=== PATIENT | male | born 1985 | race Caucasian/White ===

== ENCOUNTER → 2016-12-05 | Outpatient (CLI) | payer OTHER | END | disposition home or self-care (01) | LOC: CFH 08:11 | PROVIDERS: ATTEND Internal Medicine Cardiovascular Disease | DX: R94.31 Abnormal electrocardiogram [ECG] [EKG] (principal); I10 Essential (primary) hypertension; R01.1 Cardiac murmur, unspecified | CPT/HCPCS: 78452; 93017; A9502 ==

== ENCOUNTER → 2017-01-04 | Outpatient (CLI) | payer OTHER ==
[~2017-01-04] MED LIST: OMNIPAQUE 350 MG/ML, 100ML BOTTLE ONE
== END | disposition home or self-care (01) ==
LOC: CFH 13:53
PROVIDERS: ATTEND Internal Medicine Cardiovascular Disease
DX: Q23.1 Congenital insufficiency of aortic valve (principal)
CPT/HCPCS: 71275; 82565; Q9967

== ENCOUNTER 2017-02-23 09:56 | Day surgery (SDC) | payer OTHER ==
[~2017-02-23] VITALS: Ht 175.3 cm; Wt 115.9 kg
[2017-02-23 10:10] VITALS: BP 141/93
[2017-02-23] MEDS ORDERED: AMLO10TA4 PO (10:26)
[2017-02-23] MEDS ORDERED: HYDR25TA6 PO (10:26)
[2017-02-23] MEDS ORDERED: LISI40TA PO (10:26)
[2017-02-23] MEDS ORDERED: METO50TA82 PO (10:26)
[2017-02-23] MEDS ORDERED: SODIUM CHLORIDE 0.9% 1,000 ML IV SCH (11:30)
[2017-02-23] MEDS ORDERED: PROPOFOL 10 MG/ML, 20ML ONE (12:15)
== END 2017-02-23 13:00 | disposition home or self-care (01) ==
LOC: CACL 09:56
PROVIDERS: ATTEND Internal Medicine Cardiovascular Disease
DX: Q23.1 Congenital insufficiency of aortic valve (principal); I35.1 Nonrheumatic aortic (valve) insufficiency; I10 Essential (primary) hypertension; R01.1 Cardiac murmur, unspecified; E78.2 Mixed hyperlipidemia
CPT/HCPCS: 93312; 93321; 93325; J2704

== ENCOUNTER → 2017-03-09 | Outpatient (CLI) | payer OTHER ==
[~2017-03-09] MED LIST changes: +AMLO10TA4 PO; +HYDR25TA6 PO; +LISI40TA PO; +METO50TA82 PO; -OMNIPAQUE 350 MG/ML, 100ML BOTTLE ONE
== END | disposition home or self-care (01) ==
LOC: CVU 08:50
PROVIDERS: ATTEND Internal Medicine Cardiovascular Disease
DX: I87.2 Venous insufficiency (chronic) (peripheral) (principal); I25.10 Atherosclerotic heart disease of native coronary artery without angina pectoris; Q23.1 Congenital insufficiency of aortic valve
CPT/HCPCS: 93922; 93970

== ENCOUNTER 2017-04-10 10:05 | Day surgery (SDC) | payer OTHER ==
[2017-04-07 08:47] VITALS: BP 148/93
[2017-04-07 09:09] LABS: BLOOD UREA NITROGEN 21 mg/dL (7-18)
[2017-04-07 09:13] LABS: HEMATOCRIT 46.3 % (39.2-51.8); HEMOGLOBIN 16.3 g/dL (13.7-18.0); WHITE BLOOD COUNT 5.7 x10^3/uL (3.4-10)
[~2017-04-10] VITALS: Ht 188 cm; Wt 113.6 kg
[2017-04-10] MEDS ORDERED: SODIUM CHLORIDE 0.9% 1,000 ML IV ONE (10:17)
[2017-04-10] MEDS ORDERED: MIDAZOLAM 1 MG/ML, 5ML ONE (10:52)
[2017-04-10] MEDS ORDERED: FENTANYL PF 100 MCG/2ML ONE (10:53)
[2017-04-10] MEDS ORDERED: LIDOCAINE 2%, 20ML ONE (10:53)
[2017-04-10] MEDS ORDERED: ACETAMINOPHEN 325 MG TABLET ONE (16:55)
[2017-04-10] MEDS ORDERED: SODIUM CHLORIDE 0.9% 500 ML IV ONE ×2 (17:00→17:30)
[2017-04-10] MEDS ORDERED: ACETAMINOPHEN 325 MG TABLET PO PRN (17:00)
== END 2017-04-10 21:55 | disposition home or self-care (01) ==
LOC: CACL 10:05 → 5SO 17:25 → CACL 21:55
PROVIDERS: ATTEND Internal Medicine Cardiovascular Disease
DX: I35.1 Nonrheumatic aortic (valve) insufficiency (principal)
CPT/HCPCS: 36415; 80048; 85025; 93458; 99156; C1760; C1769; C1894; J2250; J3010; J3490; J7030; J7040; Q9967

== ENCOUNTER 2017-05-03 04:39 | Inpatient (IN) | payer OTHER ==
[2017-05-02 14:13] LABS: MICROSCOPIC NOT IND
[2017-05-02 14:16] LABS: BASOPHILS # (AUTO) 0.03 x10^3/uL (0-0.1); BASOPHILS % (AUTO) 1 % (0-1); EOSINOPHILS # (AUTO) 0.03 x10^3/uL (0-0.4); EOSINOPHILS % (AUTO) 1 % (1-7); LYMPHOCYTES # (AUTO) 1.98 x10^3/uL (1-3.4); LYMPHOCYTES % (AUTO) 34 % (22-44); MD NO; MEAN CORPUSCULAR HEMOGLOBIN 30.8 pg (27.5-34.5); MEAN CORPUSCULAR HGB CONC 35.2 g/dL (33.2-36.2); MEAN CORPUSCULAR VOLUME 87.5 fL (81-97); MEAN PLATELET VOLUME 7.6 fL (7.4-10.4); MONOCYTES # (AUTO) 0.54 x10^3/uL (0.2-0.8); MONOCYTES % (AUTO) 9 % (2-9); NEUTROPHILS # (AUTO) 3.32 x10^3/uL (1.8-6.8); NEUTROPHILS % (AUTO) 56 % (42-75); PLATELET COUNT 169 x10^3/uL (130-400); RED BLOOD COUNT 5.06 x10^6/uL (4.38-5.82)
[2017-05-02 14:24] LABS: INTERNATIONAL NORMALIZED RATIO 1.11 (0.93-1.1); PROTHROMBIN TIME 11.4 Seconds (9.6-11.5)
[2017-05-02 14:27] LABS: ALANINE AMINOTRANSFERASE 63 U/L (12-78); ALBUMIN 3.9 g/dL (3.4-5.0); ANION GAP 5 mmol/L (5-15); CALCIUM 8.8 mg/dL (8.5-10.1); CHLORIDE 108 mmol/L (98-107); CREATININE 1.18 mg/dL (0.7-1.3)
[2017-05-02 14:29] LABS: ALKALINE PHOSPHATASE 75 U/L (45-117); BILIRUBIN,TOTAL 0.3 mg/dL (0.2-1.0)
[2017-05-02 14:39] LABS: HEMOGLOBIN A1C 5.2 % (4.2-6.3)
[~2017-05-03] VITALS: Ht 188 cm; Wt 117.2 kg
[2017-05-03] MEDS ORDERED: ALBUMIN HUMAN 5% 500 ML IV PRN (05:00)
[2017-05-03 05:10] VITALS: BP_SYST 155; BP_SYST 161; BP_DIAS 85; BP_DIAS 95
[2017-05-03] MEDS ORDERED: INSULIN ASPART 100 UNITS/ML, PEN SQ-INSULIN SCH (06:00)
[2017-05-03] MEDS ORDERED: CHLORHEXIDINE MOUTHWASH 15 ML UDC MM SCH (06:00)
[2017-05-03] MEDS ORDERED: PHENYLEPHRINE 10 MG in SODIUM CHLORIDE 0.9% 249 ML IV PRN (07:30)
[2017-05-03] MEDS ORDERED: REGULAR INSULIN 62.5 UNITS in SODIUM CHLORIDE 0.9% 249.375 ML IV PRN ×2 (07:30→13:09)
[2017-05-03] MEDS ORDERED: VANCOMYCIN 1,700 MG in SODIUM CHLORIDE 0.9% 250 ML IV PRN (07:30)
[2017-05-03] MEDS ORDERED: DEXMEDETOMIDINE 200 MCG in SODIUM CHLORIDE 0.9% 48 ML IV SCH (07:30)
[2017-05-03] MEDS ORDERED: EPINEPHRINE 2 MG in SODIUM CHLORIDE 0.9% 248 ML IV SCH (07:30)
[2017-05-03] MEDS ORDERED: POTASSIUM CHLORIDE 80 MEQ, SODIUM BICARBONATE 8.4% 10 MEQ, MAGNESIUM SULFATE 0.5 GM, LI... IV PRN (07:30)
[2017-05-03] MEDS ORDERED: CEFUROXIME 1.5 GM in SODIUM CHLORIDE 0.9% 50 ML IVPB PRN (07:30)
[2017-05-03] MEDS ORDERED: MANNITOL PMX 20% 500 ML IVPB PRN (07:30)
[2017-05-03] MEDS ORDERED: FENTANYL PF 1000 MCG/20ML ONE (07:34)
[2017-05-03] MEDS ORDERED: KETAMINE 10 MG/ML, 20ML ONE (07:34)
[2017-05-03] MEDS ORDERED: PROPOFOL 10 MG/ML, 20ML ONE (07:34)
[2017-05-03] MEDS ORDERED: MIDAZOLAM 10MG/2 ML ONE (07:34)
[2017-05-03] MEDS ORDERED: ROCURONIUM 10 MG/ML,10ML ONE ×2 (07:34→10:35)
[2017-05-03] MEDS ORDERED: EPINEPHRINE 1 MG/ML, 1ML ONE (07:35)
[2017-05-03] MEDS ORDERED: ONDANSETRON 2MG/ML, 2ML ONE (07:58)
[2017-05-03] MEDS ORDERED: MUPIROCIN OINT 2%, 22GM TP SCH (09:00)
[2017-05-03] MEDS: DOCUSATE 100 MG CAPSULE PO SCH ×2 (09:00→19:54)
[2017-05-03] MEDS ORDERED: SODIUM CHLORIDE FLUSH 10ML SYR IVF SCH (09:00)
[2017-05-03] MEDS ORDERED: PROTAMINE SULFATE 10 MG/ML, 25ML ONE ×3 (10:59)
[2017-05-03] MEDS ORDERED: FENTANYL PF 250 MCG/5ML ONE (11:59)
[2017-05-03] MEDS ORDERED: methylPREDNISolone SOD SUCC 125 MG/2 ML ONE (12:56)
[2017-05-03] MEDS ORDERED: HEPARIN 1,000 UNITS/ML, 30ML ONE (12:56)
[2017-05-03] MEDS ORDERED: ALBUMIN HUMAN 25% 50 ML ONE (12:56)
[2017-05-03] MEDS ORDERED: SODIUM BICARB 8.4%, 50ML SYRINGE ONE (12:56)
[2017-05-03] MEDS ORDERED: LIDOCAINE 2% 100MG/5ML SYRINGE ONE (12:56)
[2017-05-03] MEDS ORDERED: FUROSEMIDE 20 MG/2 ML ONE (12:56)
[2017-05-03] MEDS ORDERED: NITROGLYCERIN/D5W PMX 240 ML IV PRN (13:09)
[2017-05-03] MEDS ORDERED: VASOPRESSIN 50 UNIT in SODIUM CHLORIDE 0.9% 250 ML IV PRN (13:09)
[2017-05-03] MEDS ORDERED: SODIUM CHLORIDE 0.9% 1,000 ML IV PRN (13:09)
[2017-05-03] MEDS ORDERED: DOBUTAMINE 250 MG in SODIUM CHLORIDE 0.9% 230 ML IV PRN (13:09)
[2017-05-03] MEDS ORDERED: DEXMEDETOMIDINE 200 MCG in SODIUM CHLORIDE 0.9% 48 ML IV PRN (13:09)
[2017-05-03] MEDS ORDERED: INSULIN REGULAR 100 UNITS/ML, 3ML VIAL IVPush PRN (13:30)
[2017-05-03] MEDS ORDERED: PROCHLORPERAZINE 5 MG/ML, 2ML IVPush PRN (13:30)
[2017-05-03] MEDS ORDERED: ONDANSETRON 2MG/ML, 2ML IVPush PRN (13:30)
[2017-05-03] MEDS ORDERED: BISACODYL 10 MG SUPP PR PRN (13:30)
[2017-05-03] MEDS ORDERED: GLUCAGON 1 MG IM PRN (13:30)
[2017-05-03] MEDS ORDERED: ACETAMINOPHEN 325 MG TABLET PO PRN (13:30)
[2017-05-03] MEDS ORDERED: KETOROLAC 30 MG/1 ML IVPush PRN (13:30)
[2017-05-03] MEDS ORDERED: DEXTROSE 4 GM TAB.CHEW PO PRN (13:30)
[2017-05-03] MEDS ORDERED: MIDAZOLAM 1 MG/ML, 5ML IVPush PRN (13:30)
[2017-05-03] MEDS ORDERED: EPINEPHRINE 2 MG in SODIUM CHLORIDE 0.9% 248 ML IV PRN (13:30)
[2017-05-03] MEDS: KSCALE TO 4.5 IV SCH ×2 (13:30→19:30)
[2017-05-03] MEDS ORDERED: DEXTROSE 50%, 50ML SYRINGE IVPush PRN (13:30)
[2017-05-03] MEDS ORDERED: ACETAMINOPHEN 650 MG SUPP PR PRN (13:30)
[2017-05-03] MEDS ORDERED: BISACODYL 5 MG EC TABLET PO PRN (13:30)
[2017-05-03] MEDS ORDERED: SODIUM BICARB 8.4%, 50ML SYRINGE IV PRN (13:30)
[2017-05-03] MEDS ORDERED: LACTATED RINGERS 1,000 ML IV PRN (13:30)
[2017-05-03 13:40] LABS: FIO2 61.8 %; GLUCOSE BY BLOOD GAS ANALYZER 150 mg/dL (70-110); HEMOGLOBIN BY BLOOD GAS ANALYZ 13.7 g/dL (14.0-18.0); POTASSIUM BY BLOOD GAS ANALYZR 4.1 mmol/L (3.6-5.5)
[2017-05-03] MEDS: MAGNESIUM SULFATE 1 GM in SODIUM CHLORIDE 0.9% 50 ML IVPB SCH (14:09)
[2017-05-03] MEDS: morphine SULFATE 10 MG/ML, 1ML IVPush PRN ×2 (14:28→20:32)
[2017-05-03] MEDS: INSULIN ASPART 100 UNITS/ML, PEN SQ-INSULIN SCH ×2 (16:00→21:00)
[2017-05-03] MEDS: CEFUROXIME 1.5 GM in SODIUM CHLORIDE 0.9% 50 ML IVPB SCH (17:40)
[2017-05-03] MEDS: VANCOMYCIN 1,600 MG in SODIUM CHLORIDE 0.9% 250 ML IVPB SCH (18:32)
[2017-05-03] MEDS: OXYcodone IR 5MG TABLET PO PRN ×2 (18:35→19:25)
[2017-05-03] MEDS: SODIUM CHLORIDE FLUSH 10ML SYR IVF SCH (19:54)
[2017-05-03] MEDS: MUPIROCIN OINT 2%, 22GM NAS SCH (19:54)
[2017-05-03] MEDS ORDERED: POTASSIUM CHLORIDE PMX 100 ML IV ONE (20:30)
[2017-05-04] MEDS: OXYcodone IR 5MG TABLET PO PRN ×5 (00:32→15:24)
[2017-05-04] MEDS: KSCALE TO 4.5 IV SCH ×2 (01:30→07:30)
[2017-05-04 04:42] LABS: BASOPHILS % (AUTO) 0 % (0-1); EOSINOPHILS % (AUTO) 0 % (1-7); LYMPHOCYTES % (AUTO) 6 % (22-44); MD NO; MEAN CORPUSCULAR HGB CONC 33.7 g/dL (33.2-36.2); MEAN CORPUSCULAR VOLUME 89.3 fL (81-97); MEAN PLATELET VOLUME 7.9 fL (7.4-10.4); MONOCYTES # (AUTO) 1.42 x10^3/uL (0.2-0.8); MONOCYTES % (AUTO) 9 % (2-9); NEUTROPHILS % (AUTO) 85 % (42-75); PLATELET COUNT 135 x10^3/uL (130-400); RED BLOOD COUNT 4.52 x10^6/uL (4.38-5.82); RED CELL DISTRIBUTION WIDTH 13.6 % (9.4-14.8)
[2017-05-04 04:45] LABS: INTERNATIONAL NORMALIZED RATIO 1.1 (0.93-1.1); PROTHROMBIN TIME 11.3 Seconds (9.6-11.5)
[2017-05-04 04:47] LABS: ALBUMIN 2.8 g/dL (3.4-5.0); ANION GAP 7 mmol/L (5-15); CALCIUM 7.5 mg/dL (8.5-10.1); CHLORIDE 114 mmol/L (98-107); CREATININE 1.24 mg/dL (0.7-1.3)
[2017-05-04] MEDS: VANCOMYCIN 1,600 MG in SODIUM CHLORIDE 0.9% 250 ML IVPB SCH (06:12)
[2017-05-04] MEDS: CEFUROXIME 1.5 GM in SODIUM CHLORIDE 0.9% 50 ML IVPB SCH (06:12)
[2017-05-04] MEDS: INSULIN ASPART 100 UNITS/ML, PEN SQ-INSULIN SCH ×4 (07:00→20:23)
[2017-05-04] MEDS: HYDROcodone/APAP 10/325 MG TABLET PO PRN ×3 (08:51→19:26)
[2017-05-04] MEDS ORDERED: HEPARIN wt. based STROKE protocol MC PRN (09:00)
[2017-05-04] MEDS: WARFARIN MECH. VALVE PROTOCOL 2.5 to 3.5 XX SCH (09:00)
[2017-05-04] MEDS: METOPROLOL TARTRATE 25 MG TABLET PO/NG SCH ×2 (09:36→20:08)
[2017-05-04] MEDS: DOCUSATE 100 MG CAPSULE PO SCH ×2 (09:36→20:08)
[2017-05-04] MEDS: SODIUM CHLORIDE FLUSH 10ML SYR IVF SCH ×3 (09:36→20:10)
[2017-05-04] MEDS: ASPIRIN 81 MG TABLET EC PO SCH (09:36)
[2017-05-04] MEDS: MUPIROCIN OINT 2%, 22GM NAS SCH ×2 (09:36→20:09)
[2017-05-04] MEDS: LISINOPRIL 5 MG TABLET PO SCH ×2 (09:36→21:24)
[2017-05-04 10:45] LABS: MICROSCOPIC INDICATED
[2017-05-04 10:52] LABS: CULTURE INDICATED? NO
[2017-05-04] MEDS: HEPARIN 25,000 UNITS/500ML PMX 500 ML IV PRN (11:37)
[2017-05-04] MEDS: WARFARIN HIGH DOSE PROTOCOL XX SCH (11:38)
[2017-05-04] MEDS: MAGNESIUM SULFATE 1 GM in SODIUM CHLORIDE 0.9% 50 ML IVPB SCH (13:54)
[2017-05-04] MEDS ORDERED: WARFARIN 10 MG TABLET PO-COUM SCH (18:00)
[2017-05-05 04:51] VITALS: BP 109/66
[2017-05-05] MEDS: HYDROcodone/APAP 10/325 MG TABLET PO PRN ×4 (04:55→23:52)
[2017-05-05 06:22] LABS: MEAN CORPUSCULAR HEMOGLOBIN 30.6 pg (27.5-34.5); MEAN CORPUSCULAR HGB CONC 34.4 g/dL (33.2-36.2); MEAN PLATELET VOLUME 8.2 fL (7.4-10.4); PLATELET COUNT 109 x10^3/uL (130-400); RED BLOOD COUNT 3.97 x10^6/uL (4.38-5.82); RED CELL DISTRIBUTION WIDTH 13.3 % (9.4-14.8)
[2017-05-05 06:28] LABS: INTERNATIONAL NORMALIZED RATIO 1.11 (0.93-1.1); PROTHROMBIN TIME 11.4 Seconds (9.6-11.5)
[2017-05-05 06:34] LABS: ANION GAP 4 mmol/L (5-15); CALCIUM 7.8 mg/dL (8.5-10.1); CHLORIDE 105 mmol/L (98-107)
[2017-05-05 06:35] LABS: CREATININE 0.88 mg/dL (0.7-1.3)
[2017-05-05 06:44] LABS: BASOPHILS # (AUTO) 0.02 x10^3/uL (0-0.1); BASOPHILS % (AUTO) 0 % (0-1); EOSINOPHILS % (AUTO) 0 % (1-7); LYMPHOCYTES # (AUTO) 1.53 x10^3/uL (1-3.4); LYMPHOCYTES % (AUTO) 10 % (22-44); MD SCAN; MONOCYTES % (AUTO) 8 % (2-9); NEUTROPHILS # (AUTO) 12.03 x10^3/uL (1.8-6.8); NEUTROPHILS % (AUTO) 81 % (42-75)
[2017-05-05] MEDS: INSULIN ASPART 100 UNITS/ML, PEN SQ-INSULIN SCH ×4 (07:00→21:00)
[2017-05-05] MEDS: HEPARIN 25,000 UNITS/500ML PMX 500 ML IV PRN ×2 (07:33→21:19)
[2017-05-05] MEDS: WARFARIN MECH. VALVE PROTOCOL 2.5 to 3.5 XX SCH (08:46)
[2017-05-05] MEDS: WARFARIN HIGH DOSE PROTOCOL XX SCH (08:46)
[2017-05-05] MEDS: SODIUM CHLORIDE FLUSH 10ML SYR IVF SCH ×4 (08:56→21:19)
[2017-05-05] MEDS: FUROSEMIDE 20 MG/2 ML IV SCH (08:56)
[2017-05-05] MEDS: MUPIROCIN OINT 2%, 22GM NAS SCH ×2 (08:57→21:20)
[2017-05-05] MEDS: ASPIRIN 81 MG TABLET EC PO SCH (08:57)
[2017-05-05] MEDS: LISINOPRIL 5 MG TABLET PO SCH ×2 (08:57→21:20)
[2017-05-05] MEDS: DOCUSATE 100 MG CAPSULE PO SCH ×2 (08:57→21:00)
[2017-05-05] MEDS: POTASSIUM CHLORIDE 10 MEQ TABLET.ER PO SCH (08:57)
[2017-05-05] MEDS ORDERED: ENOXAPARIN 40 MG/0.4 ML SQ SCH (09:00)
[2017-05-05] MEDS: OXYcodone IR 5MG TABLET PO PRN ×3 (10:35→21:20)
[2017-05-05 12:24] VITALS: BP 123/75
[2017-05-05 12:51] VITALS: BP 133/69
[2017-05-05] MEDS: MAGNESIUM SULFATE 1 GM in SODIUM CHLORIDE 0.9% 50 ML IVPB SCH (12:57)
[2017-05-05] MEDS ORDERED: AMIODARONE 900 MG in DEXTROSE 5% 482 ML IV PRN (13:00)
[2017-05-05] MEDS ORDERED: AMIODARONE 150 MG in DEXTROSE 5% 100 ML IV ONE ×3 (13:00→15:30)
[2017-05-05] MEDS ORDERED: FILTER 0.22 MICRON IV PRN (13:00)
[2017-05-05 13:13] VITALS: BP 121/83
[2017-05-05] MEDS ORDERED: METOPROLOL 1 MG/ML, 5ML IVPush ONE (13:55)
[2017-05-05] MEDS ORDERED: METOPROLOL 1 MG/ML, 5ML ONE (13:58)
[2017-05-05 14:03] VITALS: BP 105/71
[2017-05-05] MEDS ORDERED: DIGOXIN 0.25 MG/ML, 2ML ONE (14:59)
[2017-05-05] MEDS ORDERED: DIGOXIN 0.25 MG/ML, 2ML IVPush ONE (15:00)
[2017-05-05] MEDS ORDERED: AMIODARONE 50 MG/ML, 3ML IVPush ONE (15:30)
[2017-05-05] MEDS ORDERED: DILTIAZEM 5 MG/ML, 5ML IVPush ONE (17:00)
[2017-05-05] MEDS ORDERED: WARFARIN 10 MG TABLET PO-COUM SCH (18:00)
[2017-05-05] MEDS: DILTIAZEM 125 MG in SODIUM CHLORIDE 0.9% 100 ML IV SCH (18:20)
[2017-05-05 20:46] VITALS: BP 134/84
[2017-05-06 01:08] VITALS: BP 135/84
[2017-05-06] MEDS: OXYcodone IR 5MG TABLET PO PRN ×4 (01:51→21:49)
[2017-05-06 06:34] VITALS: BP 133/80
[2017-05-06] MEDS: DILTIAZEM 125 MG in SODIUM CHLORIDE 0.9% 100 ML IV SCH (06:41)
[2017-05-06 07:29] LABS: BASOPHILS # (AUTO) 0.04 x10^3/uL (0-0.1); BASOPHILS % (AUTO) 0 % (0-1); EOSINOPHILS % (AUTO) 0 % (1-7); LYMPHOCYTES # (AUTO) 1.67 x10^3/uL (1-3.4); LYMPHOCYTES % (AUTO) 14 % (22-44); MD NO; MEAN CORPUSCULAR HEMOGLOBIN 30.5 pg (27.5-34.5); MEAN CORPUSCULAR HGB CONC 34.5 g/dL (33.2-36.2); MEAN CORPUSCULAR VOLUME 88.5 fL (81-97); MEAN PLATELET VOLUME 7.3 fL (7.4-10.4); MONOCYTES # (AUTO) 0.93 x10^3/uL (0.2-0.8); MONOCYTES % (AUTO) 8 % (2-9); NEUTROPHILS # (AUTO) 9.44 x10^3/uL (1.8-6.8); NEUTROPHILS % (AUTO) 78 % (42-75); PLATELET COUNT 109 x10^3/uL (130-400); RED BLOOD COUNT 3.92 x10^6/uL (4.38-5.82)
[2017-05-06 07:43] LABS: ANION GAP 6 mmol/L (5-15); CALCIUM 7.8 mg/dL (8.5-10.1); CHLORIDE 107 mmol/L (98-107); CREATININE 0.75 mg/dL (0.7-1.3)
[2017-05-06 07:55] LABS: INTERNATIONAL NORMALIZED RATIO 1.04 (0.93-1.1); PROTHROMBIN TIME 10.7 Seconds (9.6-11.5)
[2017-05-06] MEDS: INSULIN ASPART 100 UNITS/ML, PEN SQ-INSULIN SCH ×4 (08:17→21:00)
[2017-05-06] MEDS: MUPIROCIN OINT 2%, 22GM NAS SCH ×2 (08:25→21:48)
[2017-05-06] MEDS: POTASSIUM CHLORIDE 10 MEQ TABLET.ER PO SCH (08:25)
[2017-05-06] MEDS: ASPIRIN 81 MG TABLET EC PO SCH (08:25)
[2017-05-06] MEDS: LISINOPRIL 5 MG TABLET PO SCH ×2 (08:25→21:47)
[2017-05-06] MEDS: DOCUSATE 100 MG CAPSULE PO SCH ×2 (08:25→21:47)
[2017-05-06] MEDS: WARFARIN MECH. VALVE PROTOCOL 2.5 to 3.5 XX SCH (08:56)
[2017-05-06] MEDS: WARFARIN HIGH DOSE PROTOCOL XX SCH (08:56)
[2017-05-06] MEDS: FUROSEMIDE 20 MG/2 ML IV SCH (09:27)
[2017-05-06] MEDS: HEPARIN 25,000 UNITS/500ML PMX 500 ML IV PRN ×2 (09:30→19:52)
[2017-05-06] MEDS: SODIUM CHLORIDE FLUSH 10ML SYR IVF SCH ×4 (09:32→21:48)
[2017-05-06] MEDS: DILTIAZEM 60 MG TABLET PO SCH ×3 (11:00→21:47)
[2017-05-06] MEDS: HYDROcodone/APAP 10/325 MG TABLET PO PRN ×2 (11:49→13:00)
[2017-05-06 12:48] VITALS: BP 132/89
[2017-05-06] MEDS ORDERED: WARFARIN 7.5 MG TABLET PO-COUM SCH (18:00)
[2017-05-06 18:21] VITALS: BP 130/87
[2017-05-06 23:09] VITALS: BP 133/85
[2017-05-07 01:59] VITALS: BP 117/73
[2017-05-07] MEDS: OXYcodone IR 5MG TABLET PO PRN ×4 (04:38→22:00)
[2017-05-07] MEDS: DILTIAZEM 60 MG TABLET PO SCH (05:30)
[2017-05-07] MEDS: HEPARIN 25,000 UNITS/500ML PMX 500 ML IV PRN ×2 (06:14→15:58)
[2017-05-07 06:31] LABS: INTERNATIONAL NORMALIZED RATIO 1.58 (0.93-1.1); PROTHROMBIN TIME 16.1 Seconds (9.6-11.5)
[2017-05-07 06:34] LABS: ANION GAP 7 mmol/L (5-15); CALCIUM 8.1 mg/dL (8.5-10.1); CHLORIDE 104 mmol/L (98-107)
[2017-05-07 06:35] LABS: CREATININE 0.81 mg/dL (0.7-1.3)
[2017-05-07 07:30] VITALS: BP 122/84
[2017-05-07] MEDS ORDERED: POTASSIUM CHLORIDE 20 MEQ TAB.ER.PRT PO ONE (08:30)
[2017-05-07] MEDS: LISINOPRIL 5 MG TABLET PO SCH ×2 (08:37→21:57)
[2017-05-07] MEDS: POTASSIUM CHLORIDE 10 MEQ TABLET.ER PO SCH (08:37)
[2017-05-07] MEDS: ASPIRIN 81 MG TABLET EC PO SCH (08:38)
[2017-05-07] MEDS: SODIUM CHLORIDE FLUSH 10ML SYR IVF SCH ×3 (08:38→21:58)
[2017-05-07] MEDS: DOCUSATE 100 MG CAPSULE PO SCH ×2 (08:38→21:00)
[2017-05-07] MEDS: MUPIROCIN OINT 2%, 22GM NAS SCH ×2 (08:38→21:58)
[2017-05-07] MEDS: WARFARIN MECH. VALVE PROTOCOL 2.5 to 3.5 XX SCH (09:00)
[2017-05-07] MEDS ORDERED: FUROSEMIDE 40 MG TABLET PO SCH (09:00)
[2017-05-07] MEDS ORDERED: BISACODYL 5 MG EC TABLET PO PRN (09:30)
[2017-05-07 09:51] LABS: BASOPHILS # (AUTO) 0.02 x10^3/uL (0-0.1); BASOPHILS % (AUTO) 0 % (0-1); EOSINOPHILS # (AUTO) 0.04 x10^3/uL (0-0.4); EOSINOPHILS % (AUTO) 1 % (1-7); LYMPHOCYTES # (AUTO) 1.55 x10^3/uL (1-3.4); LYMPHOCYTES % (AUTO) 19 % (22-44); MD NO; MEAN CORPUSCULAR HEMOGLOBIN 30.5 pg (27.5-34.5); MEAN CORPUSCULAR HGB CONC 34.5 g/dL (33.2-36.2); MEAN CORPUSCULAR VOLUME 88.4 fL (81-97); MEAN PLATELET VOLUME 8.1 fL (7.4-10.4); MONOCYTES # (AUTO) 0.66 x10^3/uL (0.2-0.8); MONOCYTES % (AUTO) 8 % (2-9); NEUTROPHILS # (AUTO) 5.73 x10^3/uL (1.8-6.8); NEUTROPHILS % (AUTO) 72 % (42-75); PLATELET COUNT 116 x10^3/uL (130-400); RED CELL DISTRIBUTION WIDTH 12.9 % (9.4-14.8)
[2017-05-07 09:57] LABS: ALANINE AMINOTRANSFERASE 36 U/L (12-78); ALBUMIN 2.5 g/dL (3.4-5.0)
[2017-05-07 09:59] LABS: ALKALINE PHOSPHATASE 64 U/L (45-117); BILIRUBIN,TOTAL 0.8 mg/dL (0.2-1.0); TOTAL PROTEIN 6.5 g/dL (6.4-8.2)
[2017-05-07] MEDS: DILTIAZEM 240 MG CAP.ER.24H PO SCH (11:42)
[2017-05-07] MEDS: WARFARIN HIGH DOSE PROTOCOL XX SCH (12:00)
[2017-05-07] MEDS ORDERED: DIGOXIN 0.25 MG/ML, 2ML ONE (13:24)
[2017-05-07] MEDS ORDERED: DIGOXIN 0.25 MG/ML, 2ML IVPush ONE (13:30)
[2017-05-07 13:47] VITALS: BP 134/60
[2017-05-07] MEDS: FUROSEMIDE 40 MG/4 ML IV SCH (17:37)
[2017-05-07] MEDS: POTASSIUM CHLORIDE 20 MEQ TAB.ER.PRT PO SCH (17:37)
[2017-05-07] MEDS ORDERED: WARFARIN 7.5 MG TABLET PO-COUM ONE (18:00)
[2017-05-07 18:45] VITALS: BP 120/84
[2017-05-07] MEDS: DIGOXIN 0.25 MG/ML, 2ML IVPush SCH (21:58)
[2017-05-07 23:29] VITALS: BP 128/84
[2017-05-08] MEDS ORDERED: AMIODARONE 150 MG in DEXTROSE 5% 100 ML IV ONE
[2017-05-08] MEDS ORDERED: FILTER 0.22 MICRON IV PRN (00:30)
[2017-05-08] MEDS: AMIODARONE 900 MG in DEXTROSE 5% 482 ML IV PRN (00:37)
[2017-05-08] MEDS: HEPARIN 25,000 UNITS/500ML PMX 500 ML IV PRN ×3 (00:45→20:48)
[2017-05-08] MEDS: DIGOXIN 0.25 MG/ML, 2ML IVPush SCH ×2 (01:24→06:31)
[2017-05-08 02:00] VITALS: BP 123/81
[2017-05-08] MEDS: OXYcodone IR 5MG TABLET PO PRN ×4 (02:05→18:16)
[2017-05-08 05:09] LABS: INTERNATIONAL NORMALIZED RATIO 1.9 (0.93-1.1); PROTHROMBIN TIME 19.3 Seconds (9.6-11.5)
[2017-05-08 05:10] LABS: ANION GAP 5 mmol/L (5-15); CALCIUM 8.4 mg/dL (8.5-10.1); CHLORIDE 104 mmol/L (98-107)
[2017-05-08] MEDS: SODIUM CHLORIDE FLUSH 10ML SYR IVF SCH ×3 (06:31→20:49)
[2017-05-08 07:37] VITALS: BP 133/80
[2017-05-08] MEDS: DOCUSATE 100 MG CAPSULE PO SCH ×3 (09:00→20:45)
[2017-05-08] MEDS: FUROSEMIDE 40 MG/4 ML IV SCH ×2 (09:09→16:43)
[2017-05-08] MEDS: LISINOPRIL 5 MG TABLET PO SCH ×2 (09:09→20:49)
[2017-05-08] MEDS: ASPIRIN 81 MG TABLET EC PO SCH (09:10)
[2017-05-08] MEDS: POTASSIUM CHLORIDE 20 MEQ TAB.ER.PRT PO SCH ×2 (09:10→16:43)
[2017-05-08] MEDS: WARFARIN MECH. VALVE PROTOCOL 2.5 to 3.5 XX SCH (09:10)
[2017-05-08] MEDS: POTASSIUM CHLORIDE 10 MEQ TABLET.ER PO SCH (09:10)
[2017-05-08] MEDS: DILTIAZEM 240 MG CAP.ER.24H PO SCH (09:10)
[2017-05-08] MEDS: WARFARIN HIGH DOSE PROTOCOL XX SCH (09:10)
[2017-05-08] MEDS: MUPIROCIN OINT 2%, 22GM NAS SCH (11:02)
[2017-05-08 15:00] VITALS: BP 128/80
[2017-05-08] MEDS ORDERED: WARFARIN 7.5 MG TABLET PO-COUM ONE (18:00)
[2017-05-08 19:10] VITALS: BP 126/86
[2017-05-09 00:41] VITALS: BP 124/79
[2017-05-09] MEDS: OXYcodone IR 5MG TABLET PO PRN ×4 (01:00→21:38)
[2017-05-09] MEDS: AMIODARONE 900 MG in DEXTROSE 5% 482 ML IV PRN (01:20)
[2017-05-09 05:25] LABS: INTERNATIONAL NORMALIZED RATIO 2.43 (0.93-1.1); PROTHROMBIN TIME 24.6 Seconds (9.6-11.5)
[2017-05-09 05:34] LABS: CHLORIDE 102 mmol/L (98-107)
[2017-05-09 05:40] LABS: ANION GAP 6 mmol/L (5-15); CALCIUM 8.4 mg/dL (8.5-10.1); CREATININE 0.84 mg/dL (0.7-1.3)
[2017-05-09] MEDS: HEPARIN 25,000 UNITS/500ML PMX 500 ML IV PRN (06:19)
[2017-05-09] MEDS: FUROSEMIDE 40 MG/4 ML IV SCH ×2 (09:34→17:10)
[2017-05-09] MEDS: POTASSIUM CHLORIDE 10 MEQ TABLET.ER PO SCH (09:35)
[2017-05-09] MEDS: DILTIAZEM 240 MG CAP.ER.24H PO SCH (09:35)
[2017-05-09] MEDS: POTASSIUM CHLORIDE 20 MEQ TAB.ER.PRT PO SCH ×2 (09:35→17:10)
[2017-05-09] MEDS: ASPIRIN 81 MG TABLET EC PO SCH (09:35)
[2017-05-09] MEDS: SODIUM CHLORIDE FLUSH 10ML SYR IVF SCH ×2 (09:35→20:02)
[2017-05-09] MEDS: LISINOPRIL 5 MG TABLET PO SCH ×2 (09:35→20:02)
[2017-05-09] MEDS: AMIODARONE 200 MG TABLET PO SCH ×2 (09:36→20:02)
[2017-05-09 09:45] VITALS: BP 148/86
[2017-05-09 12:50] VITALS: BP 130/84
[2017-05-09] MEDS ORDERED: WARFARIN MECH. VALVE PROTOCOL 2.5 to 3.5 XX PRN ×2 (18:30)
[2017-05-09] MEDS ORDERED: WARFARIN 7.5 MG TABLET PO-COUM ONE (18:30)
[2017-05-09 19:45] VITALS: BP 130/83
[2017-05-09] MEDS: DOCUSATE 100 MG CAPSULE PO SCH (20:02)
[2017-05-10 02:27] VITALS: BP 126/74
[2017-05-10] MEDS: OXYcodone IR 5MG TABLET PO PRN ×2 (05:56→11:52)
[2017-05-10 06:05] LABS: INTERNATIONAL NORMALIZED RATIO 2.45 (0.93-1.1); PROTHROMBIN TIME 24.8 Seconds (9.6-11.5)
[2017-05-10 06:09] LABS: CHLORIDE 103 mmol/L (98-107)
[2017-05-10 06:16] LABS: ANION GAP 8 mmol/L (5-15); CALCIUM 8.5 mg/dL (8.5-10.1); CREATININE 0.87 mg/dL (0.7-1.3)
[2017-05-10 09:15] VITALS: BP 125/86
[2017-05-10] MEDS ORDERED: FUROSEMIDE 40 MG TABLET PO SCH (09:30)
[2017-05-10] MEDS: ASPIRIN 81 MG TABLET EC PO SCH (09:37)
[2017-05-10] MEDS: SODIUM CHLORIDE FLUSH 10ML SYR IVF SCH (09:37)
[2017-05-10] MEDS: DILTIAZEM 240 MG CAP.ER.24H PO SCH (09:38)
[2017-05-10] MEDS: LISINOPRIL 5 MG TABLET PO SCH (09:38)
[2017-05-10] MEDS: AMIODARONE 200 MG TABLET PO SCH (09:38)
[2017-05-10] MEDS ORDERED: ASPI-621 PO (11:20)
[2017-05-10] MEDS ORDERED: DILT240C55 PO (11:20)
[2017-05-10] MEDS ORDERED: [UNRECOGNIZED DRUG - OTHER] XX (11:20)
[2017-05-10] MEDS ORDERED: OXYC5TAB3 PO (11:20)
[2017-05-10] MEDS ORDERED: AMIO200T42 PO (11:20)
[2017-05-10] MEDS ORDERED: LISI5TAB7 PO (11:20)
[2017-05-10 13:16] VITALS: BP 136/87
[2017-05-10] MEDS ORDERED: POTASSIUM CHLORIDE 10 MEQ TABLET.ER PO SCH (21:00)
== END 2017-05-10 14:03 | disposition home or self-care (01) | DRG 220 ==
LOC: 5SO 04:39 → CCU 09:37 → 5SO 05-05 07:37 → DCLOUNGE 05-10 13:30
PROVIDERS: ADMIT Thoracic Surgery (Cardiothoracic Vascular Surgery); ATTEND Thoracic Surgery (Cardiothoracic Vascular Surgery)
PROC: 02RX0JZ Replacement of Thoracic Aorta, Ascending/Arch with Synthetic Substitute, Open Approach (ICD-10-PCS; 2017-05-03)
PROC: 5A1223Z Performance of Cardiac Pacing, Continuous (ICD-10-PCS; 2017-05-03)
PROC: 5A1221Z Performance of Cardiac Output, Continuous (ICD-10-PCS; 2017-05-03)
PROC: B24BZZ4 Ultrasonography of Heart with Aorta, Transesophageal (ICD-10-PCS; 2017-05-03)
PROC: 02RF0JZ Replacement of Aortic Valve with Synthetic Substitute, Open Approach (ICD-10-PCS; principal; 2017-05-03 08:30)
PROC: 0T9B70Z Drainage of Bladder with Drainage Device, Via Natural or Artificial Opening (ICD-10-PCS; 2017-05-04)
DX: I35.1 Nonrheumatic aortic (valve) insufficiency (principal); D68.69 Other thrombophilia; I71.2 Thoracic aortic aneurysm, without rupture; I95.9 Hypotension, unspecified; I48.92 Unspecified atrial flutter; I48.91 Unspecified atrial fibrillation; Q23.1 Congenital insufficiency of aortic valve; E78.5 Hyperlipidemia, unspecified; I10 Essential (primary) hypertension; R06.89 Other abnormalities of breathing; I71.4 Abdominal aortic aneurysm, without rupture; Z51.5 Encounter for palliative care; Z87.891 Personal history of nicotine dependence; Z95.2 Presence of prosthetic heart valve
CPT/HCPCS: 36415; 36600; 71010; 71020; 80048; 80053; 81001; 81003; 82040; 82330; 82800; 82803; 82810; 82947; 82962; 83036; 83735; 84132; 84295; 85014; 85018; 85025; 85049; 85347; 85520; 85610; 85730; 86850; 86900; 86923; 87081; 88304; 88305; 93005; 93306; 93312; 93321; 93325; 93880; 94002; C1768; J0171; J0697; J1644; J1815; J1940; J2250; J2405; J2704; J2720; J3010; J3370; J3475; J3480; J3490; P9045; P9047; C1751; C1760; J0282; J1160; J2270; J2370; J2930; J7050; J7060; J7120

== ENCOUNTER 2017-05-24 05:22 | Emergency (ER) | payer OTHER ==
[~2017-05-24] VITALS: Ht 188 cm; Wt 111.0 kg
[~2017-05-24 05:22] MED LIST changes: +AMIO200T42 PO; +ASPI-621 PO; +DILT240C55 PO; +LISI5TAB7 PO; +OXYC5TAB3 PO; +[UNRECOGNIZED DRUG - OTHER] XX
[2017-05-24] MEDS ORDERED: DILTIAZEM 5 MG/ML, 5ML ONE (05:42)
[2017-05-24] MEDS ORDERED: ONDANSETRON 2MG/ML, 2ML IVPush ONE (06:00)
[2017-05-24] MEDS ORDERED: MORPHINE SULFATE 4 MG/ML, 1ML IVPush PRN (06:00)
[2017-05-24] MEDS ORDERED: SODIUM CHLORIDE FLUSH 10ML SYR IVF ONE (06:00)
[2017-05-24] MEDS ORDERED: DILTIAZEM 5 MG/ML, 5ML IV ONE (06:00)
[2017-05-24 06:01] LABS: BASOPHILS # (AUTO) 0.08 x10^3/uL (0-0.1); BASOPHILS % (AUTO) 1 % (0-1); EOSINOPHILS # (AUTO) 0.06 x10^3/uL (0-0.4); EOSINOPHILS % (AUTO) 1 % (1-7); LYMPHOCYTES # (AUTO) 1.57 x10^3/uL (1-3.4); LYMPHOCYTES % (AUTO) 21 % (22-44); MD NO; MEAN CORPUSCULAR HEMOGLOBIN 29.1 pg (27.5-34.5); MEAN CORPUSCULAR HGB CONC 33.2 g/dL (33.2-36.2); MEAN CORPUSCULAR VOLUME 87.5 fL (81-97); MEAN PLATELET VOLUME 6.9 fL (7.4-10.4); MONOCYTES # (AUTO) 0.67 x10^3/uL (0.2-0.8); MONOCYTES % (AUTO) 9 % (2-9); NEUTROPHILS # (AUTO) 5.06 x10^3/uL (1.8-6.8); NEUTROPHILS % (AUTO) 68 % (42-75); PLATELET COUNT 320 x10^3/uL (130-400); RED BLOOD COUNT 4.77 x10^6/uL (4.38-5.82); RED CELL DISTRIBUTION WIDTH 13.2 % (9.4-14.8)
[2017-05-24] MEDS ORDERED: MORPHINE SULFATE 4 MG/ML, 1ML ONE (06:04)
[2017-05-24] MEDS ORDERED: ONDANSETRON 2MG/ML, 2ML ONE (06:05)
[2017-05-24 06:12] LABS: ALBUMIN 3.5 g/dL (3.4-5.0); ANION GAP 7 mmol/L (5-15); CALCIUM 8.8 mg/dL (8.5-10.1); CHLORIDE 106 mmol/L (98-107)
[2017-05-24 06:18] LABS: CREATININE 1.16 mg/dL (0.7-1.3); TROPONIN I < 0.015 ng/mL (0.000-0.045)
[2017-05-24 06:41] LABS: INTERNATIONAL NORMALIZED RATIO 1.82 (0.93-1.1); PROTHROMBIN TIME 18.7 Seconds (9.6-11.5)
[2017-05-24] MEDS ORDERED: AMIODARONE 150 MG in DEXTROSE 5% 100 ML IV ONE (07:00)
[2017-05-24] MEDS ORDERED: FILTER 0.22 MICRON IV ONE (07:00)
[2017-05-24] MEDS ORDERED: SODIUM CHLORIDE 0.9% 1,000ML IVBOLUS ONE (08:00)
[2017-05-24] MEDS ORDERED: OMNIPAQUE 350 MG/ML, 100ML BOTTLE ONE (08:55)
[2017-05-24 09:39] VITALS: BP 119/75
== END 2017-05-24 09:42 | disposition home or self-care (01) ==
LOC: ED 05:41
DX: I48.0 Paroxysmal atrial fibrillation (principal); Z79.01 Long term (current) use of anticoagulants; I10 Essential (primary) hypertension; Z95.2 Presence of prosthetic heart valve; Z79.899 Other long term (current) drug therapy; Z98.890 Other specified postprocedural states
CPT/HCPCS: 36415; 71045; 71275; 80048; 82040; 83735; 83880; 84484; 85025; 85610; 93005; 96365; 96366; 96375; 99291; J0282; J7030; Q9967

== ENCOUNTER → 2017-06-13 | Outpatient (CLI) | payer OTHER ==
[2017-06-13 15:35] LABS: INTERNATIONAL NORMALIZED RATIO 3.15 (0.93-1.1)
== END ==
LOC: CFH 12:15
PROVIDERS: ATTEND Internal Medicine Cardiovascular Disease
DX: Q23.1 Congenital insufficiency of aortic valve (principal)
CPT/HCPCS: 36415; 85610

== ENCOUNTER → 2017-06-27 | Outpatient (CLI) | payer OTHER ==
[2017-06-27 16:13] LABS: INTERNATIONAL NORMALIZED RATIO 3.4 (0.93-1.1); PROTHROMBIN TIME 34.2 Seconds (9.6-11.5)
== END ==
LOC: LAB 12:39
PROVIDERS: ATTEND Internal Medicine Cardiovascular Disease
DX: Q23.1 Congenital insufficiency of aortic valve (principal)
CPT/HCPCS: 36415; 85610

== ENCOUNTER → 2017-07-11 | Outpatient (CLI) | payer OTHER ==
[2017-07-11 15:35] LABS: INTERNATIONAL NORMALIZED RATIO 3.78 (0.93-1.1); PROTHROMBIN TIME 37.9 Seconds (9.6-11.5)
[2017-07-11 15:47] LABS: ALBUMIN 4.1 g/dL (3.4-5.0)
[2017-07-11 15:52] LABS: BILIRUBIN, DIRECT 0.1 mg/dL (0.1-0.2); BILIRUBIN,INDIRECT 0.4 mg/dL (0.0-2.0); BILIRUBIN,TOTAL 0.5 mg/dL (0.2-1.0); CHOL/HDL RATIO 5.7; LDL/HDL RATIO 3.1 (0.5-3.0); TOTAL PROTEIN 8.5 g/dL (6.4-8.2)
== END | disposition home or self-care (01) ==
LOC: CFH 12:32
PROVIDERS: ATTEND Internal Medicine Cardiovascular Disease
DX: E78.2 Mixed hyperlipidemia (principal); Q23.1 Congenital insufficiency of aortic valve
CPT/HCPCS: 36415; 80061; 80076; 85610

== ENCOUNTER 2017-07-18 19:58 | Emergency (ER) | payer OTHER ==
[~2017-07-18] VITALS: Ht 185.4 cm; Wt 112.0 kg
[2017-07-18] MEDS ORDERED: CYCL-259 PO (20:10)
[2017-07-18] MEDS ORDERED: DILT30TA33 PO (20:10)
[2017-07-18] MEDS ORDERED: ONDANSETRON 2MG/ML, 2ML ONE (20:51)
[2017-07-18] MEDS ORDERED: HYDROmorphone 2 MG/ML, 1ML ONE (20:51)
[2017-07-18] MEDS ORDERED: HYDROmorphone 2 MG/ML, 1ML IVPush PRN (21:00)
[2017-07-18] MEDS ORDERED: ONDANSETRON ODT 4 MG PO ONE (21:00)
[2017-07-18] MEDS ORDERED: HYDROmorphone 1 MG/ML, 1ML IM ONE (21:00)
[2017-07-18] MEDS ORDERED: ONDANSETRON 2MG/ML, 2ML IVPush ONE (21:00)
[2017-07-18 21:57] VITALS: BP 127/82
== END 2017-07-18 22:35 | disposition home or self-care (01) ==
LOC: ED 22:10
DX: S39.012A Strain of muscle, fascia and tendon of lower back, initial encounter (principal); I48.91 Unspecified atrial fibrillation; I10 Essential (primary) hypertension; X58.XXXA Exposure to other specified factors, initial encounter; Y93.89 Activity, other specified; Y92.89 Other specified places as the place of occurrence of the external cause; Y99.8 Other external cause status; Z95.2 Presence of prosthetic heart valve; Z79.01 Long term (current) use of anticoagulants
CPT/HCPCS: 96374; 96375; 99284; J1170; J2405; J7512

== ENCOUNTER → 2017-07-25 | Outpatient (CLI) | payer OTHER ==
[~2017-07-25] MED LIST changes: +CYCL-259 PO; +DILT30TA33 PO
[2017-07-25 15:48] LABS: INTERNATIONAL NORMALIZED RATIO 3.81 (0.93-1.1); PROTHROMBIN TIME 38.6 Seconds (9.6-11.5)
== END | disposition home or self-care (01) ==
LOC: CFH 11:46
PROVIDERS: ATTEND Internal Medicine Cardiovascular Disease
DX: Q23.1 Congenital insufficiency of aortic valve (principal)
CPT/HCPCS: 36415; 85610

== ENCOUNTER → 2017-08-08 | Outpatient (CLI) | payer OTHER ==
[2017-08-08 15:13] LABS: INTERNATIONAL NORMALIZED RATIO 1.3 (0.93-1.1); PROTHROMBIN TIME 13.4 Seconds (9.6-11.5)
== END | disposition home or self-care (01) ==
LOC: CFH 12:36
PROVIDERS: ATTEND Internal Medicine Cardiovascular Disease
DX: Q23.1 Congenital insufficiency of aortic valve (principal)
CPT/HCPCS: 36415; 85610

== ENCOUNTER → 2017-09-19 | Outpatient (CLI) | payer OTHER ==
[2017-09-19 15:48] LABS: INTERNATIONAL NORMALIZED RATIO 2.3 (0.93-1.1); PROTHROMBIN TIME 23.5 Seconds (9.6-11.5)
== END ==
LOC: LAB 12:16
PROVIDERS: ATTEND Internal Medicine Cardiovascular Disease
DX: G23.1 Progressive supranuclear ophthalmoplegia [Steele-Richardson-Olszewski] (principal)
CPT/HCPCS: 36415; 85610

== ENCOUNTER → 2017-10-03 | Outpatient (CLI) | payer OTHER ==
[2017-10-03 16:05] LABS: INTERNATIONAL NORMALIZED RATIO 2.89 (0.93-1.1); PROTHROMBIN TIME 29.4 Seconds (9.6-11.5)
== END | disposition home or self-care (01) ==
LOC: LAB 12:40
PROVIDERS: ATTEND Internal Medicine Cardiovascular Disease
DX: Q23.1 Congenital insufficiency of aortic valve (principal)
CPT/HCPCS: 36415; 85610

== ENCOUNTER → 2017-10-17 | Outpatient (CLI) | payer OTHER ==
[2017-10-17 16:20] LABS: INTERNATIONAL NORMALIZED RATIO 2.59 (0.93-1.1); PROTHROMBIN TIME 26.4 Seconds (9.6-11.5)
== END ==
LOC: LAB 12:34
PROVIDERS: ATTEND Internal Medicine Cardiovascular Disease
DX: Q23.1 Congenital insufficiency of aortic valve (principal)
CPT/HCPCS: 36415; 85610

== ENCOUNTER → 2017-10-31 | Outpatient (CLI) | payer OTHER ==
[2017-10-31 15:56] LABS: INTERNATIONAL NORMALIZED RATIO 2.73 (0.93-1.1); PROTHROMBIN TIME 27.6 Seconds (9.6-11.5)
== END | disposition home or self-care (01) ==
LOC: CFH 12:43
PROVIDERS: ATTEND Internal Medicine Cardiovascular Disease
DX: Q23.1 Congenital insufficiency of aortic valve (principal)
CPT/HCPCS: 36415; 85610

== ENCOUNTER → 2017-12-13 | Outpatient (CLI) | payer OTHER ==
[2017-12-13 12:55] LABS: INTERNATIONAL NORMALIZED RATIO 1.8 (0.93-1.1); PROTHROMBIN TIME 18.5 Seconds (9.6-11.5)
[2017-12-13 13:02] LABS: ALBUMIN 4.1 g/dL (3.4-5.0)
[2017-12-13 13:14] LABS: BILIRUBIN, DIRECT 0.2 mg/dL (0.1-0.2); BILIRUBIN,INDIRECT 0.4 mg/dL (0.0-2.0); BILIRUBIN,TOTAL 0.6 mg/dL (0.2-1.0); CHOL/HDL RATIO 4.7; LDL/HDL RATIO 2.9 (0.5-3.0); TOTAL PROTEIN 7.8 g/dL (6.4-8.2)
== END | disposition home or self-care (01) ==
LOC: CFH 11:17
PROVIDERS: ATTEND Family Medicine
DX: I73.9 Peripheral vascular disease, unspecified (principal); E78.2 Mixed hyperlipidemia; G62.9 Polyneuropathy, unspecified; R23.3 Spontaneous ecchymoses
CPT/HCPCS: 36415; 80061; 80076; 85610

== ENCOUNTER → 2018-01-10 | Outpatient (CLI) | payer OTHER ==
[~2018-01-10] MED LIST changes: +AMLO5TAB7 PO; +ASPI-496 PO; +FENO160T PO; +LISI-170 PO; +WARF-36 PO; +WARF2.5T73 PO
[2018-01-10 12:58] LABS: BASOPHILS # (AUTO) 0.03 x10^3/uL (0-0.1); BASOPHILS % (AUTO) 1 % (0-1); EOSINOPHILS # (AUTO) 0.03 x10^3/uL (0-0.4); EOSINOPHILS % (AUTO) 1 % (1-7); LYMPHOCYTES # (AUTO) 2.12 x10^3/uL (1-3.4); LYMPHOCYTES % (AUTO) 38 % (22-44); MD NO; MEAN CORPUSCULAR HEMOGLOBIN 30.3 pg (27.5-34.5); MEAN CORPUSCULAR HGB CONC 34.3 g/dL (33.2-36.2); MEAN CORPUSCULAR VOLUME 88.5 fL (81-97); MEAN PLATELET VOLUME 8.3 fL (7.4-10.4); MONOCYTES # (AUTO) 0.53 x10^3/uL (0.2-0.8); MONOCYTES % (AUTO) 10 % (2-9); NEUTROPHILS # (AUTO) 2.83 x10^3/uL (1.8-6.8); NEUTROPHILS % (AUTO) 51 % (42-75); PLATELET COUNT 173 x10^3/uL (130-400); RED BLOOD COUNT 5.09 x10^6/uL (4.38-5.82); RED CELL DISTRIBUTION WIDTH 12.9 % (9.4-14.8)
[2018-01-10 13:02] LABS: MICROSCOPIC NOT IND
[2018-01-10 13:04] LABS: CULTURE INDICATED? NO
[2018-01-10 13:10] LABS: INTERNATIONAL NORMALIZED RATIO 1.71 (0.93-1.1); PROTHROMBIN TIME 17.4 Seconds (9.6-11.5)
[2018-01-10 13:17] LABS: C-REACTIVE PROTEIN, QUANT 0.09 mg/dL (0.02-0.49); CREATININE 1.27 mg/dL (0.7-1.3)
== END | disposition home or self-care (01) ==
LOC: CFH 09:48
PROVIDERS: ATTEND Specialist
DX: I73.9 Peripheral vascular disease, unspecified (principal); G62.9 Polyneuropathy, unspecified; R23.3 Spontaneous ecchymoses; Q23.1 Congenital insufficiency of aortic valve; Z79.01 Long term (current) use of anticoagulants
CPT/HCPCS: 36415; 81003; 82565; 85025; 85610; 85651; 85730; 86038; 86140; 86235; 86256; 86226

== ENCOUNTER → 2018-01-25 | Outpatient (CLI) | payer OTHER ==
[2018-01-25 14:06] LABS: ALBUMIN 4.1 g/dL (3.4-5.0); ANION GAP 6 mmol/L (5-15); CALCIUM 8.5 mg/dL (8.5-10.1); CHLORIDE 108 mmol/L (98-107)
[2018-01-25 14:10] LABS: ALANINE AMINOTRANSFERASE 49 U/L (12-78); ALKALINE PHOSPHATASE 65 U/L (45-117); BILIRUBIN,TOTAL 0.5 mg/dL (0.2-1.0); CREATININE 1.42 mg/dL (0.7-1.3); TOTAL PROTEIN 7.6 g/dL (6.4-8.2)
== END | disposition home or self-care (01) ==
LOC: STAR 13:09
PROVIDERS: ATTEND Orthopaedic Surgery
DX: Z01.818 Encounter for other preprocedural examination (principal); S83.231A Complex tear of medial meniscus, current injury, right knee, initial encounter
CPT/HCPCS: 36415; 80053

== ENCOUNTER → 2018-02-21 | Outpatient (CLI) | payer OTHER ==
[2018-02-21 15:46] LABS: INTERNATIONAL NORMALIZED RATIO 1.61 (0.93-1.1); PROTHROMBIN TIME 16.4 Seconds (9.6-11.5)
== END | disposition home or self-care (01) ==
LOC: CFH 12:34
PROVIDERS: ATTEND Internal Medicine Cardiovascular Disease
DX: Q23.1 Congenital insufficiency of aortic valve (principal)
CPT/HCPCS: 36415; 85610

== ENCOUNTER → 2018-04-09 | Outpatient (CLI) | payer OTHER ==
[2018-04-09 15:51] LABS: INTERNATIONAL NORMALIZED RATIO 2.06 (0.93-1.1); PROTHROMBIN TIME 21.2 Seconds (9.6-11.5)
== END | disposition home or self-care (01) ==
LOC: CFH 12:37
PROVIDERS: ATTEND Internal Medicine Cardiovascular Disease
DX: Q23.1 Congenital insufficiency of aortic valve (principal); Z79.01 Long term (current) use of anticoagulants
CPT/HCPCS: 36415; 85610

== ENCOUNTER → 2018-05-28 | Outpatient (CLI) | payer OTHER ==
[~2018-05-28] MED LIST changes: +AMLO-150 PO; -AMLO5TAB7 PO; -ASPI-621 PO; +ASPI81TA45 PO; +WARF2.5T32 PO; -WARF2.5T73 PO
[2018-05-28 16:05] LABS: INTERNATIONAL NORMALIZED RATIO 1.4 (0.93-1.1); PROTHROMBIN TIME 14.6 Seconds (9.6-11.5)
== END | disposition home or self-care (01) ==
LOC: CFH 12:34
PROVIDERS: ATTEND Internal Medicine Cardiovascular Disease
DX: Z79.01 Long term (current) use of anticoagulants (principal); Q23.1 Congenital insufficiency of aortic valve
CPT/HCPCS: 36415; 85610

== ENCOUNTER 2019-05-27 12:25 | Outpatient (CLI) | payer OTHER | END 2019-05-27 23:59 | disposition home or self-care (01) | LOC: CVU 12:25 | PROVIDERS: ATTEND Internal Medicine Cardiovascular Disease | DX: I08.8 Other rheumatic multiple valve diseases (principal); Z95.2 Presence of prosthetic heart valve | CPT/HCPCS: 93306 ==

== ENCOUNTER → 2020-04-27 | Outpatient (CLI) | payer OTHER | END | disposition home or self-care (01) | LOC: CVU 08:35 | PROVIDERS: ATTEND Internal Medicine Cardiovascular Disease | DX: I11.9 Hypertensive heart disease without heart failure (principal); R94.31 Abnormal electrocardiogram [ECG] [EKG] | CPT/HCPCS: 93306 ==